=== PATIENT | male | born 1990 | race Two or more races ===

== ENCOUNTER 2020-11-29 10:53 | Emergency (ER) | payer SELFPAY ==
[~2020-11-29] VITALS: Ht 167.6 cm; Wt 65.6 kg
[2020-11-29 10:58] VITALS: BP 138/70
[2020-11-29] MEDS ORDERED: TETRACAINE 0.5% OPHTH SOLUTION 4ML BOTTLE. OS ONE (11:15)
[2020-11-29] MEDS ORDERED: FLUORESCEIN OPHTH TEST STRIP. OS ONE (11:15)
[2020-11-29] MEDS ORDERED: IBUP-1007 PO (11:34)
[2020-11-29] MEDS ORDERED: POLY10DR3 LEFTEYE (11:34)
--- NOTE | 2020-11-29 11:34 | PHYS DOC ---
General Adult EDM: Chief Complaint: EYE PROBLEMS HPI: HPI: Patient is a 30 year old male who presents with states 2 days ago he got some kind of trash debris into his left eye. He states since then the eye is gotten more reddened and he has become light sensitive and feels like there is something in the eye. He states he has eye irritation type pain that he rates at a 9/10. He states he does not know what a tetanus shot is. Patient will be given a tetanus shot in the ED. Patient denies any past medical history or taking any medications daily. (JULIOCESAR BYRD APRN) Review of Systems: Review of Systems: Constitutional: Denies fever or chills. [] Eyes: Denies change in visual acuity. +Left eye pain with eye redness after ge tting trash in eye 2 days ago. [] HENT: Denies nasal congestion or sore throat. [] Respiratory: Denies cough or shortness of breath. [] Cardiovascular: Denies chest pain or edema. [] GI: Denies abdominal pain, nausea, vomiting, bloody stools or diarrhea. [] : Denies dysuria. [] Musculoskeletal: Denies back pain or joint pain. [] Integument: Denies rash. [] Neurologic: Denies headache, focal weakness or sensory changes. [] Endocrine: Denies polyuria or polydipsia. [] Lymphatic: Denies swollen glands. [] Psychiatric: Denies depression or anxiety. [] (JULIOCESAR BYRD MUSEUM LIBRARIAN) Heart Score: C/O Chest Pain: No Risk Factors: Risk Factors: DM, Current or recent (<one month) smoker, HTN, HLP, family history of CAD, obesity. Risk Scores: Score 0 - 3: 2.5% MACE over next 6 weeks - Discharge Home Score 4 - 6: 20.3% MACE over next 6 weeks - Admit for Clinical Observation Score 7 - 10: 72.7% MACE over next 6 weeks - Early Invasive Strategies (JULIOCESAR BYRD MUSEUM LIBRARIAN) Current Medications: Current Medications Medications (Trade) Dose Ordered Sig/Raegan Start Time Stop Time Status Last Admin Dose Admin Fluorescein Sodium (Ful-Shruthi) 1 strip 1X ONCE 11/29/20 11:15 11/29/20 11:16 UNV 11/29/20 11:20 1 STRIP Tetracaine HCl (Tetracaine) 1 drop 1X ONCE 11/29/20 11:15 11/29/20 11:16 UNV 11/29/20 11:20 1 DROP (JULIOCESAR BYRD APRN) Allergies: Allergies: Allergies Coded Allergies Type Severity Reaction Last Updated Verified No Known Drug Allergies 11/29/20 No (JULIOCESAR BYRD APRN) Physical Exam: PE: Constitutional: Well developed, well nourished, no acute distress, non-toxic appearance. [] HENT: Normocephalic, atraumatic, bilateral external ears normal, oropharynx moist, no oral exudates, nose normal. [] Eyes: PERRLA, EOMI, conjunctiva red, no discharge. Corneal abrasion[] Neck: Normal range of motion, no tenderness, supple, no stridor. [] Cardiovascular:Heart rate regular rhythm, no murmur [] Lungs & Thorax: Bilateral breath sounds clear to auscultation [] Abdomen: Bowel sounds normal, soft, no tenderness, no masses, no pulsatile masses. [] Skin: Warm, dry, no erythema, no rash. [] Back: No tenderness, no CVA tenderness. [] Extremities: No tenderness, no cyanosis, no clubbing, ROM intact, no edema. [] Neurologic: Alert and oriented X 3, normal motor function, normal sensory function, no focal deficits noted. [] Psychologic: Affect normal, judgement normal, mood normal. [] (JULIOCESAR BYRD APRN) EKG: EKG: [] (JULIOCESAR BYRD APRN) Radiology/Procedures: Radiology/Procedures: [] (JULIOCESAR BYRD APRN) Course & Med Decision Making: Course & Med Decision Making Pertinent Labs and Imaging studies reviewed. (See chart for details) See HPI. Patient can move around the eyes but states it is starting to become painful. He states he feels like there is something in the eye. He denies any itching or discharge from the eye. He states when he woke up this morning it was a bit more swollen. There is conjunctiva redness. PERRLA. No discharge was seen. No foreign body. site interpreter used. Patient is [place]- speaking only and states that he cannot read or understand the high acuity test. He does have light sensitivity. Patient tolerated the eye exam well. Eye Exam Visual accuity: Patient states he cannot read and is [place]-speaking only Eye exam: PERRL, Extraocular muscles intact. No signs of ruptured globe. Sclera redness. Red reflex present. Foreign body: No foreign bodies seen with examination or with lid flip exam. Richard-pen: N/A Fluorescein test: Lower eye corneal abrasion. Anesthetic: Tetracaine [] (JULIOCESAR BYRD APRN) Dragon Disclaimer: Dragon Disclaimer: This electronic medical record was generated, in whole or in part, using a voice recognition dictation system. (JULIOCESAR BYRD APRN) Departure Departure Impression: Primary Impression: Pain, eye, left Additional Impression: Corneal abrasion Qualified Codes: S05.02XA - Injury of conjunctiva and corneal abrasion without foreign body, left eye, initial encounter Disposition: 01 DC HOME SELF CARE/HOMELESS Condition: STABLE Referrals: Micha GERMAN MD Patient Instructions: Eye - Corneal Abrasion Additional Instructions: Follow up with a corporate meeting planner if needed. Use medication as prescribed. If eye pain worsens or vision changes, return to the ED. Scripts Ibuprofen (IBUPROFEN) 600 Mg Tablet 600 MG PO PRN Q6HRS PRN for INFLAMMATION, #24 TAB Prov: JULIOCESAR BYRD APRN 11/29/20 Polymyxin B Sulf/Trimethoprim (POLYMYXIN B-TMP EYE DROPS) 10 Ml Drops 1 DROP LEFTEYE QID for 7 Days, #10 ML 0 Refills Prov: JULIOCESAR BYRD APRN 11/29/20 Attending Signature Attending Signature I have reviewed the PA/TRANSIT SPECIALIST's note and plan of care. I was available for consultation as needed during the patient's visit in the emergency department. I agree with the clinical impression, plan, and disposition. (ELDA ARMSTRONG DO) JULIOCESAR BYRD APRN Nov 29, 2020 11:34 ELDA ARMSTRONG DO Nov 29, 2020 12:11
[2020-11-29] MEDS ORDERED: DIPH,PERTUSS(ACELL),TET VAC/PF 0.5 ML SYRINGE. VAX IM ONE (12:00)
== END 2020-11-29 11:43 | disposition home or self-care (01) ==
LOC: ER 10:53
DX: S05.02XA Injury of conjunctiva and corneal abrasion without foreign body, left eye, initial encounter (principal); X58.XXXA Exposure to other specified factors, initial encounter; Y93.89 Activity, other specified; Y92.89 Other specified places as the place of occurrence of the external cause; Y99.8 Other external cause status
CPT/HCPCS: 99283

== ENCOUNTER 2021-04-23 19:29 | Emergency (ER) | payer SELFPAY ==
[~2021-04-23] VITALS: Ht 170.2 cm; Wt 75.0 kg
[~2021-04-23 19:29] MED LIST: IBUP-1007 PO; POLY10DR3 LEFTEYE
--- NOTE | 2021-04-23 19:53 | PHYS DOC ---
Past Medical History Past Medical History: No Pertinent History Past Surgical History: No Surgical History Smoking Status: Never Smoker Alcohol Use: None General Adult EDM: Chief Complaint: ABDOMINAL PAIN HPI: HPI: Patient is a 30 year old male who complains of upper left abdominal pain for the past 3 days. Patient states he has had intermittent nausea but has not vomited, denies constipation or diarrhea. Patient rates his pain a 6 out of 10. Patient denies chest pain, shortness of breath, recent fever or chills, denies receiving the COVID-19 virus immunization series, patient denies any other physical complaints or physical concerns. Review of Systems: Review of Systems: 14 body systems of review of systems have been reviewed. See HPI for pertinent positives and negative responses, otherwise all other systems are negative, nonpertinent or noncontributory. Constitutional: Negative except as outlined in HPI above. Skin: Negative except as outlined in HPI above. Eyes: Negative except as outlined in HPI above. HENT: Negative except as outlined in HPI above. Respiratory: Negative except as outlined in HPI above. Cardiovascular: Negative except as outlined in HPI above. GI: Negative except as outlined in HPI above. : Negative except as outlined in HPI above. Musculoskeletal: Negative except as outlined in HPI above. Integument: Negative except as outlined in HPI above. Neurologic: Negative except as outlined in HPI above. Endocrine: Negative except as outlined in HPI above. Lymphatic: Negative except as outlined in HPI above. Psychiatric: Negative except as outlined in HPI above. Heart Score: C/O Chest Pain: No Risk Factors: Risk Factors: DM, Current or recent (<one month) smoker, HTN, HLP, family history of CAD, obesity. Risk Scores: Score 0 - 3: 2.5% MACE over next 6 weeks - Discharge Home Score 4 - 6: 20.3% MACE over next 6 weeks - Admit for Clinical Observation Score 7 - 10: 72.7% MACE over next 6 weeks - Early Invasive Strategies Allergies: Allergies: Allergies Coded Allergies Type Severity Reaction Last Updated Verified No Known Drug Allergies 11/29/20 No Physical Exam: PE: Constitutional: Well developed, well nourished, no acute distress, non-toxic appearance. 30-year-old male in no apparent distress. HENT: Normocephalic, atraumatic. Eyes: Conjunctiva normal, no discharge. Neck: Normal range of motion. Cardiovascular: Distal cap refill less than 2 seconds, no cyanosis appreciated. Lungs & Thorax: Patient is in no respiratory distress, no adventitious lung sounds appreciated. Abdomen: Bowel sounds normal, soft, no masses, no pulsatile masses. No bruising or skin discoloration of the abdomen. Pain to palpation over left upper quadrant, negative McBurney's point tenderness, negative psoas signs, negative Echols sign, negative rebound tenderness. Skin: Warm, dry, no erythema, no rash. Back: No tenderness, no CVA tenderness. Extremities: No tenderness, no cyanosis, no clubbing, ROM intact, no edema. Neurologic: Alert and oriented X 3, normal motor function, normal sensory function, no focal deficits noted. Psychologic: Affect normal, judgement normal, mood normal. Current Patient Data: Vital Signs: Vital Signs Date Time Temp Pulse Resp B/P (MAP) Pulse Ox O2 Delivery O2 Flow Rate FiO2 04/23/21 19:46 97.8 58 12 148/85 (92) 99 Room Air 97.8 EKG: EKG: [] Radiology/Procedures: Radiology/Procedures: PATIENT: USAMA PICKENS ACCOUNT: [id number] : 1990 LOCATION: ER AGE: 30 SEX: M EXAM STATUS: REG ER ORD. PHYSICIAN: DEEJAY BROWN APRN REASON: Abdominal pain PROCEDURE: ACUTE ABDOMEN SERIES Abdominal Series dated 04/23/2021. No comparison available. Clinical Indication: Abdominal pain. Findings: Single upright PA view the chest shows normal heart and mediastinal contours. The lungs are clear without focal consolidation. Vascular interstitium is within normal limits. Flat and upright views of the abdomen show nondilated gas filled loops of bowel. No air-fluid level on the upright view. Small amount of stool throughout the colon. No abnormal calcifications are identified. There is no evidence of pneumoperitoneum. Impression chest: No acute radiographic abnormality. Impression abdomen: Non-obstructive bowel gas pattern. Electronically signed by: Deejay Ames MD (04/23/2021 8:25 PM) [facility] [place] Med Decision Making: Course & Med Decision Making Pertinent Labs and Imaging studies reviewed. (See chart for details) 30-year-old male, vital signs reviewed, presents to the emergency department with chief complaint of left upper quadrant pain for the past 3 days. Patient's physical examination consistent with dyspepsia, will give GI cocktail, x-ray imaging with acute abdomen to rule out constipation. Draw CBC, BMP, lipase. Patient is labs unremarkable, this is unlikely a pancreatitis or gallbladder attack as lipase is within normal limits. Patient stated pain relief with GI cocktail given. Discussed with patient follow-up with outpatient physician, will provide doctor's list for area physicians as patient does not have a primary care physician. Patient is amenable to discharge planning. Patient is Citizen [place]-speaking, used [employer] interpretation service for HPI, physical examination, and discharge instructions. Discussed with the patient all findings and diagnostic testing as well as the need to follow-up with their primary care provider for further evaluation and treatment or return to the ED if any new or worsening symptoms. Strict return precautions were also discussed at length, the patient voiced understanding and agreement with the discharge planning. The patient was nontoxic in appearance, in no apparent distress, and hemodynamically stable at the time of disposition. Dragon Disclaimer: Dragon Disclaimer: This electronic medical record was generated, in whole or in part, using a voice recognition dictation system. Departure Departure Impression: Primary Impression: Dyspepsia Referrals: NO PCP (PCP) SUNITA SCHNEIDER MD Patient Instructions: Abdominal Pain (Nonspecific) Additional Instructions: You were seen today in the emergency department for abdominal pain. You report pain relief with GI cocktail given. I recommend you follow-up with the outpatient physician for ongoing abdominal pain problems. Your tested today in the emergency department for the COVID-19 virus, you do not have the COVID-19 virus. Your lab work and x-ray were reassuring that you do not have an emergency that would require immediate intervention by GI specialist or hospitalization. Please return to the emergency department for worsening symptoms or other concerns. Thank you for visiting our Emergency Department. It was a pleasure taking care of you today in the emergency department and we appreciate you trusting us with your care. If any additional problems come up don't hesitate to return to visit us. Please follow up with your primary care provider so they can plan additional care if needed and know about the problem that you had. If symptoms worsen come back to the Emergency Department. Any concerning symptoms that start such as chest pain, shortness of air, weakness or numbness on one side of the body, running high fevers or any other concerning symptoms return to the ER. EMERGENCY DEPARTMENT GENERAL DISCHARGE INSTRUCTIONS Thank you for coming to [facility] Emergency Department (ED) today and trusting us with you care. We trust that you had a positive experience in our Emergency Department. If you wish to speak to the department management, you may call the Director at [phone]. YOUR FOLLOW UP INSTRUCTIONS ARE FOLLOWS: 1. Do you have a private Doctor? If you do not have a private doctor, please ask for a resource list of physicians or clinics that may be able to assist you with follow up care. 2. The Emergency Physicain has interpreted your x-rays. The X-Ray specialist will also review them. If there is a change in the findings, you will be notified in 48 hours when at all possible. 3. A lab test or culture has been done, your results will be reviewed and you will be notified if you need a change in treatment. ADDITIONAL INSTRUCTIONS AND INFORMATION: 1. Your care today has been supervised by a physician who is specially trained in emergency care. Many problems require more than one evaluation for a complete diagnosis and treatment. We recommend that you schedule your follow up appointment as recommended to ensure complete treatment of you illness or injury. If you are unable to obtain follow up care and continue to have a problem, or if your condition worsens, we recommend that you return to the ED. 2. We are not able to safely determine your condition over the phone nor are we able to give sound medical advice over the phone. For these safety reasons, if you call for medical advice we will ask you to come to the ED for further evaluation. 3. If you have any questions regarding these discharge instructions please call the ED at [phone]. SAFETY INFORMATION: In the interest of safety, wellness, and injury prevention; we encourage you to wear your sealbelt, if you smoke; quite smoking, and we encourage family to use a protective helmet for bicycling and other sporting events that present an increased risk for head injury. IF YOUR SYMPTOMS WORSEN OR NEW SYMPTOMS DEVELOP, OR YOU HAVE CONCERNS ABOUT YOUR CONDITION; OR IF YOUR CONDITION WORSENS WHILE YOU ARE WAITING FOR YOUR FOLLOW UP APPOINTMENT; EITHER CONTACT YOUR PRIMARY CARE DOCTOR, THE PHYSICIAN WHOSE NAME AND NUMBER YOU WERE Pat MORELOS, OR RETURN TO THE ED IMMEDIATELY. DEEJAY BROWN APRN Apr 23, 2021 19:53
[2021-04-23 20:12] LABS: BASO # 0.1 x10^3/uL (0.0-0.2); BASO % 2 % (0-3); EOS % 12 % (0-3); HEMATOCRIT 43.9 % (39.0-53.0); HEMOGLOBIN 15.5 g/dL (13.0-17.5); LYMPH # 2.3 x10^3/uL (1.0-4.8); LYMPH % 26 % (24-48); MEAN CORPUSCULAR HEMOGLOBIN 33 pg (25-35); MEAN CORPUSCULAR HGB CONC 35 g/dL (31-37); MEAN CORPUSCULAR VOLUME 94 fL (79-100); MONO # 0.5 x10^3/uL (0.0-1.1); MONO % 6 % (0-9); NEUT % 55 % (31-73); PLATELET COUNT 226 x10^3/uL (140-400); RED BLOOD COUNT 4.69 x10^6/uL (4.30-5.70); RED CELL DISTRIBUTION WIDTH 13.2 % (11.5-14.5); WHITE BLOOD COUNT 9.1 x10^3/uL (4.0-11.0)
[2021-04-23 20:13] LABS: BILIRUBIN,URINE NEGATIVE (NEG); CLARITY,URINE CLOUDY; COLOR,URINE YELLOW; NITRITE,URINE NEGATIVE (NEG); PROTEIN,URINE NEGATIVE (NEG-TRACE)
[2021-04-23] MEDS ORDERED: LIDO:MAALOX 1:1 20 ML SINGLE DOSE. SWSW ONE (20:15)
[2021-04-23 20:19] LABS: CALCIUM 9.3 mg/dL (8.5-10.1); POTASSIUM 4.3 mmol/L (3.5-5.1)
[2021-04-23 20:19] LABS: AMORPHOUS SEDIMENT,UR PRESENT /HPF; BACTERIA,URINE 0 /HPF (0-FEW); GRANULAR CASTS,URINE OCCASIONAL /HPF; RBC,URINE RARE /HPF (0-2); WBC,URINE 0 /HPF (0-4)
--- NOTE | 2021-04-23 20:28 | RAD ---
Abdominal Series dated 04/23/2021. No comparison available. Clinical Indication: Abdominal pain. Findings: Single upright PA view the chest shows normal heart and mediastinal contours. The lungs are clear wit hout focal consolidation. Vascular interstitium is within normal limits. Flat and upright views of the abdomen show nondilated gas filled loops of bowel. No air-fluid level o n the upright view. Small amount of stool throughout the colon. No abnormal calcifications are identi fied. There is no evidence of pneumoperitoneum. Impression chest: No acute radiographic abnormality. Impression abdomen: Non-obstructive bowel gas pattern. Electronically signed by: Deejay Ames MD (04/23/2021 8:25 PM) [facility]ONDA
[2021-04-23 22:31] VITALS: BP 134/76
--- NOTE | 2021-04-24 19:03 | NUR ---
IP: Attempted to contact pt concerning covid results. Pt does not speak [place] and phone paraprofessional interpreter not able to get through to pt.
== END 2021-04-23 22:39 | disposition home or self-care (01) ==
LOC: ER 19:29
DX: R10.13 Epigastric pain (principal); Z20.822 Contact with and (suspected) exposure to COVID-19
CPT/HCPCS: 36415; 74022; 80048; 81001; 83690; 85025; 87426; 99285; U0003; U0005

== ENCOUNTER 2021-08-11 12:49 | Emergency (ER) | payer SELFPAY ==
[~2021-08-11] VITALS: Ht 167.6 cm; Wt 66.0 kg
[2021-08-11] MEDS ORDERED: NAPROXEN 500 MG TABLET PO STA (14:57)
--- NOTE | 2021-08-11 15:19 | RAD ---
EXAM: XR SHOULDER_RIGHT 2+ VIEWS 08/11/2021 2:43 PM CLINICAL INDICATION: Right shoulder pain COMPARISON: None TECHNIQUE: 3 views of the right shoulder FINDINGS: No acute fracture. Alignment is normal. The glenohumeral and acromioclavicular joints are maintained. Soft tissue is normal. IMPRESSION: No acute osseous abnormality of the right shoulder. Electronically signed by: Susanna Tao MD (08/11/2021 3:16 PM) [id number]
--- NOTE | 2021-08-11 15:38 | PHYS DOC ---
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 Patient states the number was not too big. Patient describes the pain as sharp and intermittent worse on range of motion. States nothing specifically relieves the pain. Patient is [place]-speaking and route rider line was not available for Vincentian because of high volumes, we had to use [employer] road commissioner Review of Systems: Review of Systems: Constitutional: Denies fever or chills. [] Musculoskeletal: Reports right shoulder pain Integument: Denies rash. [] Neurologic: Denies headache, focal weakness or sensory changes. [] Psychiatric: Denies depression or anxiety. [] Heart Score: C/O Chest Pain: N/A Risk Factors: Risk Factors: DM, Current or recent (<one month) smoker, HTN, HLP, family history of CAD, obesity. Risk Scores: Score 0 - 3: 2.5% MACE over next 6 weeks - Discharge Home Score 4 - 6: 20.3% MACE over next 6 weeks - Admit for Clinical Observation Score 7 - 10: 72.7% MACE over next 6 weeks - Early Invasive Strategies Current Medications: Current Medications Medications (Trade) Dose Ordered Sig/Raegan Start Time Stop Time Status Last Admin Dose Admin Naproxen (Naprosyn) 500 mg 1X STAT 08/11/21 14:57 08/11/21 14:58 DC 08/11/21 15:17 500 MG Allergies: Allergies: Allergies Coded Allergies Type Severity Reaction Last Updated Verified No Known Drug Allergies 11/29/20 No Physical Exam: PE: Constitutional: Well developed, well nourished, no acute distress, non-toxic appearance. [] Skin: Warm, dry, no erythema, no rash. [] Back: No tenderness, no CVA tenderness. [] Extremities: Bruising noted on the right scapula. Full range of motion to the right shoulder, and right upper extremity, adequate radial, medial, ulnar sensation to the right fingers. +2 right radial pulse. Cap refill less than 2 seconds to right fingers Neurologic: Alert and oriented X 3, normal motor function, normal sensory function, no focal deficits noted. [] Psychologic: Affect normal, judgement normal, mood normal. [] Current Patient Data: Vital Signs: Vital Signs Date Time Temp Pulse Resp B/P (MAP) Pulse Ox O2 Delivery O2 Flow Rate FiO2 08/11/21 14:42 98.4 58 20 135/90 (105) 99 Room Air 98.4 EKG: EKG: [] Radiology/Procedures: Radiology/Procedures: []PROCEDURE: SHOULDER 2+V RIGHT EXAM: XR SHOULDER_RIGHT 2+ VIEWS 08/11/2021 2:43 PM CLINICAL INDICATION: Right shoulder pain COMPARISON: None TECHNIQUE: 3 views of the right shoulder FINDINGS: No acute fracture. Alignment is normal. The glenohumeral and acromioclavicular joints are maintained. Soft tissue is normal. IMPRESSION: No acute osseous abnormality of the right shoulder. Electronically signed by: Susanna Tao MD (08/11/2021 3:16 PM) [id number] DICTATED and SIGNED BY: SUSANNA TAO MD DATE: 08/11/21 [id number] Course & Med Decision Making: Course & Med Decision Making Pertinent Labs and Imaging studies reviewed. (See chart for details) This a 30-year-old male patient presented to the ED today with right shoulder pain after a piece of lumber fell on his shoulder 2 days ago. Right shoulder x- rays interpreted by radiologist are negative for any acute findings. Ice elevation encouraged. OTC pain relievers. Follow-up with orthopedic doctor in 1 week if pain persist. Lissette Disclaimer: Lissette Disclaimer: This electronic medical record was generated, in whole or in part, using a voice recognition dictation system. Departure Departure Impression: Primary Impression: Contusion of right shoulder Qualified Codes: S40.011A - Contusion of right shoulder, initial encounter Disposition: HOME / SELF CARE / HOMELESS Condition: STABLE Referrals: NO PCP (PCP) INGE ARAIZA II, MD follow up in one week Patient Instructions: Shoulder Pain, [id number] Additional Instructions: You were seen for right shoulder pain, your right shoulder x-rays were negative for any acute findings. Take the prescribed medications as needed for pain. Try to ice and elevate the extremity. Follow-up with your own doctor or the provided orthopedic doctor in 1 week Scripts Naproxen (NAPROXEN) 500 Mg Tablet 1 TAB PO BID for pain, #14 TAB 0 Refills Prov: TOMMY CLARKE APRN 08/11/21 TOMMY CLARKE APRN Aug 11, 2021 15:38
[2021-08-11 15:46] VITALS: BP 111/75
[2021-08-11] MEDS ORDERED: NAPR-514 PO (15:58)
== END 2021-08-11 16:20 | disposition home or self-care (01) ==
LOC: ER 12:49
DX: S40.011A Contusion of right shoulder, initial encounter (principal); W18.39XA Other fall on same level, initial encounter; Y93.89 Activity, other specified; Y92.89 Other specified places as the place of occurrence of the external cause; Y99.8 Other external cause status
CPT/HCPCS: 73030; 99283

== ENCOUNTER 2021-12-25 12:32 | Emergency (ER) | payer SELFPAY ==
[~2021-12-25] VITALS: Ht 170.2 cm; Wt 59.1 kg
[~2021-12-25 12:32] MED LIST changes: +NAPR-514 PO
[2021-12-25 12:45] VITALS: BP 142/85
[2021-12-25] MEDS ORDERED: VALA10008 PO (13:03)
[2021-12-25] MEDS ORDERED: TRAM50TA PO (13:03)
--- NOTE | 2021-12-25 13:04 | PHYS DOC ---
Past Medical History Past Medical History: No Pertinent History Past Surgical History: No Surgical History Smoking Status: Never Smoker Alcohol Use: None General Adult EDM: Chief Complaint: ABDOMINAL PAIN HPI: HPI: Patient is a 31 year old presents to the ER with a rash and pain on his right side of his body. Patient states that started approximately 34 days ago denies any fevers or chills. Denies having prior symptoms. Patient has not had no new food exposures or detergents or soaps. Review of Systems: Review of Systems: Constitutional: Denies fever or chills. [] Eyes: Denies change in visual acuity. [] HENT: Denies nasal congestion or sore throat. [] Respiratory: Denies cough or shortness of breath. [] Cardiovascular: Denies chest pain or edema. [] GI: Denies abdominal pain, nausea, vomiting, bloody stools or diarrhea. [] : Denies dysuria. [] Musculoskeletal: Denies back pain or joint pain. [] Integument: Patient has a rash Neurologic: Denies headache, focal weakness or sensory changes. [] Endocrine: Denies polyuria or polydipsia. [] Lymphatic: Denies swollen glands. [] Psychiatric: Denies depression or anxiety. [] Heart Score: C/O Chest Pain: No Risk Factors: Risk Factors: DM, Current or recent (<one month) smoker, HTN, HLP, family history of CAD, obesity. Risk Scores: Score 0 - 3: 2.5% MACE over next 6 weeks - Discharge Home Score 4 - 6: 20.3% MACE over next 6 weeks - Admit for Clinical Observation Score 7 - 10: 72.7% MACE over next 6 weeks - Early Invasive Strategies Allergies: Allergies: Allergies Coded Allergies Type Severity Reaction Last Updated Verified No Known Drug Allergies 11/29/20 No Physical Exam: PE: Constitutional: Well developed, well nourished, no acute distress, non-toxic appearance. [] HENT: Normocephalic, atraumatic, bilateral external ears normal, oropharynx moist, no oral exudates, nose normal. [] Eyes: PERRLA, EOMI, conjunctiva normal, no discharge. [] Neck: Normal range of motion, no tenderness, supple, no stridor. [] Cardiovascular:Heart rate regular rhythm, no murmur [] Lungs & Thorax: Bilateral breath sounds clear to auscultation [] Abdomen: Bowel sounds normal, soft, no tenderness, no masses, no pulsatile masses. [] Skin: Patient has a rash on the right side of his body consistent with herpes zoster is along the T10 dermatome. Warm, dry, no erythema, Back: No tenderness, no CVA tenderness. [] Extremities: No tenderness, no cyanosis, no clubbing, ROM intact, no edema. [] Neurologic: Alert and oriented X 3, normal motor function, normal sensory fu nction, no focal deficits noted. [] Psychologic: Affect normal, judgement normal, mood normal. [] EKG: EKG: [] Radiology/Procedures: Radiology/Procedures: [] Course & Med Decision Making: Course & Med Decision Making Pertinent Labs and Imaging studies reviewed. 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 Patient feels comfortable plan and verbalizes understanding return precautions were discussed Dragon Disclaimer: Dragon Disclaimer: This electronic medical record was generated, in whole or in part, using a voice recognition dictation system. Departure Departure Impression: Primary Impression: Shingles Disposition: HOME / SELF CARE / HOMELESS Condition: STABLE Referrals: NO PCP (PCP) Patient Instructions: Shingles, [id number] Scripts Tramadol Hcl (TRAMADOL HCL) 50 Mg Tablet 50 MG PO DAILY PRN for PAIN, #12 TAB 0 Refills Prov: TANI LAST DO 12/25/21 Valacyclovir Hcl (VALACYCLOVIR) 1,000 Mg Tablet 1 TAB PO DAILY for 10 Days, #10 TAB 3 Refills Prov: TANI LAST DO 12/25/21 TANI LAST DO Dec 25, 2021 13:04
[2021-12-25] MEDS ORDERED: valACYclovir 500 MG TABLET. PO ONE (13:30)
[2021-12-25] MEDS ORDERED: traMADol 50 MG TABLET PO ONE (13:30)
== END 2021-12-25 13:26 | disposition home or self-care (01) ==
LOC: ER 12:32
DX: B02.9 Zoster without complications (principal)
CPT/HCPCS: 99283